=== PATIENT | male | born 1995 | race Two or more races ===

== ENCOUNTER 2021-12-09 03:18 | Inpatient (IN) | payer OTHER ==
[~2021-12-09] VITALS: Ht 170.2 cm; Wt 44.0 kg
[2021-12-09] MEDS ORDERED: LORAZEPAM 1 MG TABLET ONE (03:48)
--- NOTE | 2021-12-09 03:57 | NUR ---
MELBA FROM HOME TO ER BED 14. AAOX4. NOT IN RESP DISTRESS. BROUGHT IN FOR OVERDOSE ON COCAINE. PER PT, HE DID TOO MUCH COCAINE. PT WAS NOTED TACHYCARDIC. MD WAS AT THE BEDSIDE FOR EVAL. ORDERS RECEIVED, NOTED CARRIED OUT. MEDICATED ORDERED
[2021-12-09] MEDS ORDERED: LORAZEPAM 1 MG TABLET PO ONE (04:00)
[2021-12-09] MEDS ORDERED: IV NS 0.9% 1,000 ML BAG IV ONE ×2 (05:30→06:00)
[2021-12-09] MEDS ORDERED: LORAZEPAM INJ 2 MG/ML VIAL IV ONE (05:30)
--- NOTE | 2021-12-09 05:46 | NUR ---
Note lucius in EDM - 12/09/21 at 0549 by LINDSEY SPOKE WITH RUKHSANA FROM [facility] TRANSFER. CURRENTLY NO BED. CASE IS NOT DECLINED, JUSTR AWAITING BED AVAILABILITY IN AM.
[2021-12-09] MEDS ORDERED: ONDANSETRON HCL/PF 4 MG/2 ML VIAL IVP ONE (06:00)
[2021-12-09] MEDS ORDERED: MORPHINE SULFATE INJ 2 MG/ML DISP.SYRIN IV ONE (06:00)
[2021-12-09 06:48] LABS: BASOPHILS % (AUTO) 0.1 % (0.0-2.0); EOSINOPHILS % (AUTO) 0.1 % (0.0-6.0); HEMATOCRIT 40 % (39-51); HEMOGLOBIN 13.1 g/dL (13.5-17.5); LYMPHOCYTES # (AUTO) 1.6 K/uL (0.8-4.8); LYMPHOCYTES % (AUTO) 9.5 % (20.0-44.0); MEAN CORPUSCULAR HGB CONC 33 g/dl (31.0-36.0); MEAN CORPUSCULAR VOLUME 80 fL (80-96); MONOCYTES # (AUTO) 1.7 K/uL (0.1-1.30); MONOCYTES % (AUTO) 10.1 % (2.0-12.0); NEUTROPHILS # (AUTO) 13.9 K/uL (1.8-8.9); NEUTROPHILS % (AUTO) 80.2 % (43.0-81.0); PLATELET COUNT (AUTO) 333 K/uL (150-450); RED BLOOD CELL COUNT(AUTO) 5.02 MIL/uL (4.5-6.0); WHITE BLOOD COUNT (AUTO) 17.4 K/uL (4.3-11.0)
[2021-12-09] MEDS ORDERED: ONDANSETRON HCL/PF 4 MG/2 ML VIAL ONE (06:49)
[2021-12-09] MEDS ORDERED: MORPHINE SULFATE INJ 4 MG/ML DISP.SYRIN ONE (06:49)
[2021-12-09] MEDS ORDERED: LORAZEPAM INJ 2 MG/ML VIAL ONE (06:50)
--- NOTE | 2021-12-09 06:51 | NUR ---
MORIS RAMOS MD ON THE PHONE WITH DR. ROBLES
--- NOTE | 2021-12-09 06:54 | NUR ---
MORIS MACKEY - DR. BINGHAM
--- NOTE | 2021-12-09 07:03 | NUR ---
PAGED ORTHO AWAITING A CALL BACK
[2021-12-09 07:07] LABS: CALCIUM, SERUM 9.2 mg/dL (8.5-10.1)
--- NOTE | 2021-12-09 07:12 | NUR ---
PT TAKEN FOR XRAY
--- NOTE | 2021-12-09 07:32 | NUR ---
CALLED [facility] [phone] EXCHANGE WILL CALL US BACK
[2021-12-09] MEDS ORDERED: DIVA-78 PO (07:59)
[2021-12-09 09:05] LABS: POTASSIUM 2.9 mmol/L (3.5-5.1)
[2021-12-09] MEDS ORDERED: Magnesium 1 GM/2 ML VIAL IV ONE (09:30)
--- NOTE | 2021-12-09 10:08 | NUR ---
CALLED LAB FOR DRAW.
[2021-12-09] MEDS ORDERED: Magnesium 1 GM/2 ML VIAL ONE ×2 (10:52→10:55)
[2021-12-09] MEDS ORDERED: POTASSIUM CL. PREMIX PERIPHER. 50 ML ONE ×2 (10:53→18:08)
[2021-12-09] MEDS: POTASSIUM CL. PREMIX PERIPHER. 50 ML IV SCH ×4 (11:13→18:15)
[2021-12-09] MEDS ORDERED: HYDROCODONE/APAP 5/325MG TABLET PO PRN (11:30)
[2021-12-09] MEDS ORDERED: ACETAMINOPHEN 325 MG TABLET PO PRN (11:30)
[2021-12-09] MEDS ORDERED: IV NS 0.9% 1,000 ML IV PRN (11:30)
[2021-12-09] MEDS ORDERED: ONDANSETRON HCL/PF 4 MG/2 ML VIAL IVP PRN (11:30)
[2021-12-09] MEDS ORDERED: MAGNESIUM HYDROXIDE 30 ML UDC PO PRN (11:30)
[2021-12-09] MEDS ORDERED: MAG HYDROX/AL HYDROX/SIMETH 30 ML UDC PO PRN (11:30)
--- NOTE | 2021-12-09 13:02 | NUR ---
DR. HAIR PAGED ONCE AGAIN
--- NOTE | 2021-12-09 15:06 | NUR ---
PATIENT RESTING COMFORTABLY, BREATHING EVEN AND NON LABORED
[2021-12-09] MEDS ORDERED: POTASSIUM CL. PREMIX PERIPHER. 100 ML ONE (18:07)
--- NOTE | 2021-12-09 18:51 | NUR ---
GOT BED 306-2 > CHANGE OF SHIFT.
--- NOTE | 2021-12-09 19:28 | NUR ---
REPORT GIVEN TO AMBROSIO MAIER FOR DECLAN
--- NOTE | 2021-12-09 19:45 | NUR ---
TRANSFERRED TO 306 UNDER ACLS
[2021-12-09 20:00] VITALS: BP 123/79
--- NOTE | 2021-12-09 20:00 | NUR ---
college admissions counselor notes Received Pt from ER. Pt is alert and orientedX4. On room air. No SOB. No S/s of distress noted. Pt is able to ambulate with a steady gait. IV site at LAC# 18 is clean, intact and flushes well. Skin assessment is done and performed. Noted L forehead abrasion. Pt stated "I fell in the shower!" [place] Pt to the room and the use of call light. Pt verbalize understanding. Snack is provided. Safety precautions is maintained. Bed at low position, brakes locked, side rails upX2, hob elevated, bed alarm is on and call light is within reach. Will continue to monitor.
--- NOTE | 2021-12-10 | NUR ---
RN notes Pt refused IV fluids. Offered several times. Explained risks and benefits. Pt keep refusing. Will continue to monitor.
--- NOTE | 2021-12-10 04:30 | NUR ---
RN notes Collected UA per MD ordered. Called lab to garbage pick up worker the specimen.
[2021-12-10 05:56] LABS: BILIRUBIN,URINE SMALL (NEGATIVE); COLOR,URINE YELLOW (YELLOW); LEUKOCYTE ESTERASE ,URINE NEGATIVE (NEGATIVE); NITRITE, URINE NEGATIVE (NEGATIVE); PROTEIN,URINE NEGATIVE (NEGATIVE); UGLUCOSE NEGATIVE (NEGATIVE); UROBILINOGEN,URINE 0.2 EU/dL (0.2)
[2021-12-10 05:57] LABS: BASOPHILS % (AUTO) 0.4 % (0.0-2.0); EOSINOPHILS % (AUTO) 2.1 % (0.0-6.0); HEMATOCRIT 40 % (39-51); LYMPHOCYTES # (AUTO) 2.5 K/uL (0.8-4.8); LYMPHOCYTES % (AUTO) 30.2 % (20.0-44.0); MEAN CORPUSCULAR HGB CONC 33 g/dl (31.0-36.0); MEAN CORPUSCULAR VOLUME 81 fL (80-96); MONOCYTES % (AUTO) 12.1 % (2.0-12.0); NEUTROPHILS # (AUTO) 4.5 K/uL (1.8-8.9); NEUTROPHILS % (AUTO) 55.2 % (43.0-81.0); PLATELET COUNT (AUTO) 292 K/uL (150-450); WHITE BLOOD COUNT (AUTO) 8.1 K/uL (4.3-11.0)
[2021-12-10 06:33] LABS: BACTERIA,URINE None seen /HPF (None Seen); RBC,URINE 0-2 /HPF (0-2); SQUAMOUS EPITHELIAL CELL,UR Rare /HPF (None Seen); URINE AMORPHOUS URATE Many /HPF (None Seen); WBC,URINE 0-2 /HPF (0-3)
--- NOTE | 2021-12-10 06:33 | NUR ---
RN closing notes Pt is resting in bed comfortably. Pt is alert and orientedX4. On room air. No SOB. No S/s of distress noted. VS is stable. IV site at LAC# 18 is clean, intact and flushes well. Pt refused IV fluids despite explanation risks and benefits. Kept Pt clean, dry and comfortable. Safety precautions is maintained. Bed at low position, brakes locked, side rails upX2, hob elevated, bed alarm is on and call light is within reach. Will endorse to am nurse for DECLAN.
[2021-12-10 06:48] LABS: CALCIUM, SERUM 8.9 mg/dL (8.5-10.1); CREATININE 0.8 mg/dL (0.6-1.3); MAGNESIUM 2.3 mg/dL (1.8-2.4); PHOSPHORUS 3.1 mg/dL (2.5-4.9); POTASSIUM 3.6 mmol/L (3.5-5.1)
--- NOTE | 2021-12-10 07:22 | NUR ---
WOUND CARE CONSULT: PT PRESENTS WITH DRY ABRASION TO FOREHEAD,PRESENT ON ADMISSION.PTINDEPENDENT WITH BED MOBILITY. WILL SEE PRN.
--- NOTE | 2021-12-10 07:30 | NUR ---
RN OPENING NOTES RECEIVED PATIENT IN BED AWAKE, A/O X4, VERBALLY RESPONSIVE. NO SIGNS OF ACUTE DISTRESS NOTED. STABLE ON ROOM AIR. BREATHING EVEN AND UNLABORED. NOTED WITH IV ACCESS ON LEFT AC #18G, INTACT AND PATENT. PATIENT STILL REFUSING IVF TO BE ADMINISTERED. WILL COTINUR TO ENCOURAGE PATIENT. NO C/O PAIN AT THIS TIME. SAFETY MEASURES IN PLACE. BED IN LOWEST AND LOCKED POSITION, SR UP, CALL LIGHT PLACED WITHIN EASY REACH. WILL CONTINUE TO MONITOR PATIENT.
[2021-12-10 08:00] VITALS: BP 126/76
[2021-12-10 16:00] VITALS: BP 104/66
--- NOTE | 2021-12-10 18:33 | NUR ---
RN CLOSING NOTES PATIENT IN BED AWAKE, A/O X4, VERBALLY RESPONSIVE. NO SIGNS OF ACUTE DISTRESS NOTED. REMAINS STABLE ON ROOM AIR. BREATHING EVEN AND UNLABORED. IV ACCESS ON LEFT HAND #22G INTACT AND PATENT. WITH IV FLUIDS OF NS @125ML/HR RUNNING. NO C/O PAIN AT THIS TIME. SAFETY MEASURES MAINTAINED. BED IN LOWEST AND LOCKED POSITION, SR UP X2 , CALL LIGHT AND TABLE WITHIN EASY REACH. WILL ENDORSE TO NEXT SHIFT FOR DECLAN.
[2021-12-10 20:00] VITALS: BP 117/73
--- NOTE | 2021-12-10 20:00 | NUR ---
MSRN FULLY AWAKE, NON COMPLIANT. REFUSED ANY BODY CHECK AND ASSESMENT. STATED WANTED TO LEAVE AND WILL CALL A FRIEND ONCE HE IS READY. STATED DOES NOT NEED ANYBODY, DENIES PAIN EXCEPT WHEN HE MOVES HIS RIGHT ARM AND SHOULDER. NO NEEDS MADE.TOOK OFF HIS IVF.
--- NOTE | 2021-12-10 21:30 | NUR ---
MSRN SIGNED OUT AGAINST MEDICAL ADVICE. HEPLOCK OUT, ARMBAND CUT OFF. REFUSED TO STAY UPSET STATED NOTHING WAS DONE REGARDING HIS RIGHT SHOULDER. DETERMINED TO LEAVE. ADVISED TO GO TO NEAREST ER FOR FURTHER DISCOMFORTS, NON COMPLAINT. WALKED OUT WITH ALL HIS PERSONAL BELONGINGS.
== END 2021-12-10 21:30 | disposition left against medical advice (07) | DRG 562 ==
LOC: ER 03:28 → TRANSITION 09:50 → MED 19:22
PROVIDERS: ADMIT Internal Medicine; ATTEND Internal Medicine
DX: S42.291A Other displaced fracture of upper end of right humerus, initial encounter for closed fracture (principal); G92.9 Unspecified toxic encephalopathy; E87.1 Hypo-osmolality and hyponatremia; S43.014A Anterior dislocation of right humerus, initial encounter; W18.2XXA Fall in (into) shower or empty bathtub, initial encounter; Y93.9 Activity, unspecified; Y92.002 Bathroom of unspecified non-institutional (private) residence as the place of occurrence of the external cause; F14.129 Cocaine abuse with intoxication, unspecified; Z20.822 Contact with and (suspected) exposure to COVID-19
CPT/HCPCS: 36415; 70450-TC; 71045-TC; 73020; 73200-TC; 80048-TC; 81001; 83735-TC; 84100-TC; 85025-TC; 85730-TC; 87081-TC; C9803; G0378; G0480; J2060; J2270; J2405; J3475; J3480; J7030

== ENCOUNTER 2021-12-15 23:48 | Emergency (ER) | payer OTHER ==
[~2021-12-15] VITALS: Ht 172.7 cm; Wt 53.5 kg
[~2021-12-15 23:48] MED LIST: DIVA-78 PO
[2021-12-16] MEDS ORDERED: HALOPERIDOL LACTATE INJ 5 MG/ML VIAL IM ONE (00:30)
[2021-12-16] MEDS ORDERED: HALOPERIDOL LACTATE INJ 5 MG/ML VIAL ONE (00:32)
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
--- NOTE | 2021-12-16 01:05 | NUR ---
URINE COLLECTED AND SENT TO LAB
[2021-12-16 01:24] LABS: BILIRUBIN,URINE MODERATE (NEGATIVE); COLOR,URINE YELLOW (YELLOW); LEUKOCYTE ESTERASE ,URINE NEGATIVE (NEGATIVE); NITRITE, URINE NEGATIVE (NEGATIVE); PROTEIN,URINE >=300 mg/dl (NEGATIVE); UGLUCOSE NEGATIVE (NEGATIVE)
[2021-12-16 01:54] LABS: BASOPHILS % (AUTO) 0.2 % (0.0-2.0); EOSINOPHILS % (AUTO) 0.1 % (0.0-6.0); HEMATOCRIT 39 % (39-51); HEMOGLOBIN 12.8 g/dL (13.5-17.5); LYMPHOCYTES % (AUTO) 4.2 % (20.0-44.0); MEAN CORPUSCULAR HGB CONC 33 g/dl (31.0-36.0); MEAN CORPUSCULAR VOLUME 81 fL (80-96); MONOCYTES # (AUTO) 0.9 K/uL (0.1-1.30); MONOCYTES % (AUTO) 3.7 % (2.0-12.0); NEUTROPHILS # (AUTO) 22.5 K/uL (1.8-8.9); NEUTROPHILS % (AUTO) 91.8 % (43.0-81.0); PLATELET COUNT (AUTO) 349 K/uL (150-450); RED BLOOD CELL COUNT(AUTO) 4.86 MIL/uL (4.5-6.0); WHITE BLOOD COUNT (AUTO) 24.5 K/uL (4.3-11.0)
[2021-12-16 02:10] LABS: ALANINE AMINOTRANSFERASE 28 U/L (12-78); ALBUMIN 3.8 g/dL (3.4-5.0); ALKALINE PHOSPHATASE 122 U/L (46-116); ASPARTATE AMINOTRANSFERASE 35 U/L (15-37); BILIRUBIN,DIRECT 0.1 mg/dL (0.0-0.2); BILIRUBIN,TOTAL 0.5 mg/dL (0.2-1.0); CALCIUM, SERUM 9.2 mg/dL (8.5-10.1); CARBON DIOXIDE 27 mmol/L (21-32); CHLORIDE 101 mmol/L (98-107); GLUCOSE 120 mg/dL (74-106); SODIUM SERUM 135 mmol/L (136-145); TOTAL PROTEIN, SERUM 7.5 g/dL (6.4-8.2); UREA NITROGEN, BLOOD 14 mg/dL (7-18)
[2021-12-16 02:13] LABS: ACETAMINOPHEN 0 ug/ml (10-30); ALCOHOL, BLOOD < 3 mg/dL (0-0)
[2021-12-16 02:14] LABS: POTASSIUM 2.6 mmol/L (3.5-5.1)
[2021-12-16] MEDS ORDERED: POTASSIUM CHLORIDE 10 MEQ/50 ML PREMIXED IVPB FOR PERIPHERAL LINE IV ONE (02:30)
[2021-12-16] MEDS ORDERED: POTASSIUM CL. PREMIX PERIPHER. 200 ML ONE (02:43)
[2021-12-16] MEDS ORDERED: diphenhydrAMINE HCL 50 MG/ML VIAL IM ONE (03:00)
[2021-12-16] MEDS ORDERED: diphenhydrAMINE HCL 50 MG/ML VIAL ONE (03:12)
--- NOTE | 2021-12-16 07:23 | NUR ---
ASSESSED PT ON BED ASLEEP, EASILY AROUSABLE, NOT IN RESPIRATORY DISTRESS, V/S STABLE, KEPT RESTED AND COMFORTABLE. WILL CONTINUE TO MONITOR.
[2021-12-16 08:30] LABS: BACTERIA,URINE Few /HPF (None Seen); SPERM,URINE Few /HPF (None Seen); URINE AMORPHOUS URATE Moderate /HPF (None Seen); WBC,URINE 0-3 /HPF (0-3)
[2021-12-16 08:32] LABS: SQUAMOUS EPITHELIAL CELL,UR Moderate /HPF (None Seen)
--- NOTE | 2021-12-16 11:47 | NUR ---
PT ABLE TO ALBULATE WITHOUT ASSISTANCE. AWARE.
--- NOTE | 2021-12-16 12:47 | NUR ---
IV removed. Catheter intact and site benign. Pressure and 4x4 applied to site. No bleeding noted.
--- NOTE | 2021-12-16 13:12 | NUR ---
AT BEDSIDE FOR R SHOULDER REDUCTION,
--- NOTE | 2021-12-16 13:14 | NUR ---
RN, RT AND EMT AT BEDSIDE FOR R SHOULDER REDUCTION.
[2021-12-16] MEDS ORDERED: PROPOFOL 20 ML IV ONE (13:15)
--- NOTE | 2021-12-16 13:15 | NUR ---
CONSENT SIGN BY THE PT.
--- NOTE | 2021-12-16 13:20 | NUR ---
PATIENT FOR RIGHT SHOULDER REDUCTION UNDER MODERATE ANESTHESIA. TO BE DONE BY DR. DENISE, RN JAN JAIME RODRIGUEZ, RT MG AND SHARLA, EMT GILMA AND RITIKA. PATIENT WITH OXYGEN INH AT 4LPM. VITALS CHECKED.
--- NOTE | 2021-12-16 13:20 | NUR ---
PROPOFOL 60MG GIVEN IV PUSH. VITALS BP 127/96, HR 71BPM, RR 20CPM, SPO2 100%
--- NOTE | 2021-12-16 13:23 | NUR ---
PROPOFOL 25MG IV PUSH GIVEN. PATIENT IS STILL AWAKE BUT RESTLESS
--- NOTE | 2021-12-16 13:24 | NUR ---
PATIENT STILL RESTLESS, PROPOFOL 25MG IV PUSH GIVEN
--- NOTE | 2021-12-16 13:25 | NUR ---
PROPOFOL 25MG IVPUSH GIVEN. PATIENT IS STILL MOVING
--- NOTE | 2021-12-16 13:28 | NUR ---
PROPOFOL 25MG IV PUSH GIVEN. DR DENISE ATTEMPTED THE REDUCTION BUT PATIENT STILL MOVING.
--- NOTE | 2021-12-16 13:29 | NUR ---
R SHOULDER REDUCTION DONE BY . CALLED [employer]IRE PREPARATION WORKER FOR POST REDUCTION XRAY.
[2021-12-16] MEDS ORDERED: PROPOFOL 200 MG/20 ML VIAL IV ONE ×2 (13:30→14:00)
--- NOTE | 2021-12-16 13:44 | NUR ---
CALLED [facility] [phone] DR. ISABEL Kuhn WILL CALL US BACK.
--- NOTE | 2021-12-16 13:44 | NUR ---
PT IS WHEELED TO CT SCAN VIA [facility].
[2021-12-16 14:18] LABS: BASOPHILS % (AUTO) 0.2 % (0.0-2.0); EOSINOPHILS % (AUTO) 1.1 % (0.0-6.0); HEMATOCRIT 39 % (39-51); HEMOGLOBIN 12.7 g/dL (13.5-17.5); LYMPHOCYTES # (AUTO) 1.3 K/uL (0.8-4.8); LYMPHOCYTES % (AUTO) 11.7 % (20.0-44.0); MEAN CORPUSCULAR HGB CONC 33 g/dl (31.0-36.0); MEAN CORPUSCULAR VOLUME 82 fL (80-96); MONOCYTES # (AUTO) 0.9 K/uL (0.1-1.30); MONOCYTES % (AUTO) 7.6 % (2.0-12.0); NEUTROPHILS # (AUTO) 8.9 K/uL (1.8-8.9); NEUTROPHILS % (AUTO) 79.4 % (43.0-81.0); PLATELET COUNT (AUTO) 340 K/uL (150-450); RED BLOOD CELL COUNT(AUTO) 4.77 MIL/uL (4.5-6.0); WHITE BLOOD COUNT (AUTO) 11.3 K/uL (4.3-11.0)
--- NOTE | 2021-12-16 14:51 | NUR ---
PT ACCEPTED [facility] ER UNDER DR. FERRELL PLEASE CALL [phone] FOR REPORT. TRANSPORT WITH PRN AT [phone]
--- NOTE | 2021-12-16 15:16 | NUR ---
REPORT GIVEN TO AMBROSIO MORAN OF [facility] FOR DECLAN.
--- NOTE | 2021-12-16 15:56 | NUR ---
REPORT GIVEN TO EMS FOR PT TRANSFER TO [facility] FOR DECLAN.
[2021-12-16 16:13] VITALS: BP 140/98
== END 2021-12-16 16:13 | disposition short-term general hospital (02) ==
LOC: ER 23:52
DX: S43.014A Anterior dislocation of right humerus, initial encounter (principal); F19.10 Other psychoactive substance abuse, uncomplicated; F24 Shared psychotic disorder; E87.6 Hypokalemia; D72.829 Elevated white blood cell count, unspecified; R51.9 Headache, unspecified; M54.2 Cervicalgia; X58.XXXA Exposure to other specified factors, initial encounter; Y93.89 Activity, other specified; Y92.89 Other specified places as the place of occurrence of the external cause; Y99.8 Other external cause status
CPT/HCPCS: 23650; 36415; 70450; 71045; 72125; 73030 ×2; 80048; 80076; 80143; 80307; 80320; 81001; 82962; 84132; 85025 ×2; 93005; 96365; 96366; 96372 ×2; 99152; 99285; J1200; J1630; J2704; J3480; J7030; G0480; G0500